=== PATIENT | female | born 1990 | race Caucasian/White ===

== ENCOUNTER 2016-12-14 19:26 | Emergency (ER) | payer MEDICAID ==
[~2016-12-14] VITALS: Ht 165.1 cm; Wt 100.0 kg
[2016-12-14 20:01] VITALS: Ht 165.1 cm; Wt 100.0 kg
[2016-12-14] MEDS ORDERED: ESCI20TA PO (22:55)
[2016-12-14] MEDS ORDERED: TRAZ100T15 PO (22:55)
--- NOTE | 2016-12-14 23:07 | ERD ---
ER Documentation Chief Complaint Chief Complaint BIB SELF, CC: MEDICATION REFIL HPI This is a 26-year-old female presents to the ER requesting medication refill for trazodone and Lexapro. Patient is normally seen by psychiatrist however she has not been able to see him secondary to insurance changes. She denies any other symptoms. She admits to smoking cigarettes however denies drinking. ROS 12 point review of systems was done, all negative except per HPI. Medications Home Meds Active Scripts Escitalopram Oxalate* (Lexapro*) 20 Mg Tablet, 20 MG PO DAILY, #30 TAB Prov:TIM PATEL 12/14/16 Trazodone Hcl* (Trazodone Hcl*) 100 Mg Tablet, 100 MG PO BID, #60 TAB Prov:TIM PATEL 12/14/16 Allergies Allergies: Coded Allergies: No Known Allergy (Unverified , 12/14/16) PMhx/Soc History of Surgery: Yes (OVARIAN CYST REMOVAL) Anesthesia Reaction: No Hx Neurological Disorder: No Hx Respiratory Disorders: No Hx Cardiac Disorders: No Hx Psychiatric Problems: Yes (DEPRESSION) Hx Miscellaneous Medical Probl: No Hx Alcohol Use: No Hx Substance Use: No Hx Tobacco Use: Yes Smoking Status: Current every day smoker Physical Exam Vitals Vital Signs Date Time Temp Pulse Resp B/P Pulse Ox O2 Delivery O2 Flow Rate FiO2 12/14/16 20:01 98.2 82 18 126/81 100 Physical Exam Const: [] Head: Atraumatic Eyes: Normal Conjunctiva Resp: Clear to auscultation bilaterally Cardio: Regular rate and rhythm, no murmurs Neur: Awake and alert Psych: Normal Mood and Affect Procedures/MDM This is a 26-year-old female presents today for medication refill. Patient is asymptomatic otherwise. Patient will be given prescriptions for 1 month. She is to follow-up with her primary care doctor within 1-2 days or return to ER sooner if symptoms worsen. My medical decision making was shared with the patient, she understands and agrees with plan. Departure Diagnosis: Primary Impression: Encounter for medication refill Condition: Stable Patient Instructions: Taking Medicine Safely Additional Instructions: Call your primary care doctor TOMORROW for an appointment during the next 1-2 days.See the doctor sooner or return here if your condition worsens before your appointment time. TIM PATEL Dec 14, 2016 23:07
[2016-12-14 23:20] VITALS: PULSE 78; RESP 20; TEMP 98.6
== END 2016-12-14 23:20 | disposition home or self-care (01) ==
LOC: FTE 19:26
DX: Z76.0 Encounter for issue of repeat prescription (principal); F17.210 Nicotine dependence, cigarettes, uncomplicated
CPT/HCPCS: 99281